=== PATIENT | female | born 1930 | race Caucasian/White ===

== ENCOUNTER 2020-07-25 06:47 | Emergency (ER) | payer MEDICARE, OTHER ==
[2020-07-25 08:30] LABS: BASOPHIL 0.3 % (0-2); EOSINOPHIL 1.2 % (0-7); HCT 41.7 % (37.0-47.0); HGB 13.8 g/dl (12.5-16.0); LYMPHOCYTE 9.8 % (15-48); MCH 30.1 pg (25.0-31.0); MCHC 33.1 g/dL (32.0-36.0); MONOCYTE 7.7 % (0-12); MPV 11.2 fL (6.0-9.5); NEUTROPHIL 80.7 % (41-80); NRBC 0; PLT 192 K/uL (150-400); RBC 4.58 M/uL (4.20-5.40); RDW 13.1 % (11.5-14.0); WBC 9.9 K/uL (4.0-10.5)
[2020-07-25 08:38] LABS: ALBUMIN 3.8 g/dL (3.4-5.0); BILIRUBIN - TOTAL 0.5 mg/dL (0.2-1.0); BUN/CREAT RATIO (CALC) 25.7 RATIO; CREATININE 1.05 mg/dL (0.51-0.95); TOTAL PROTEIN 6.8 g/dL (6.4-8.2)
[2020-07-25 09:01] LABS: BILIRUBIN NEGATIVE (NEGATIVE); BLOOD TRACE-INTACT Ery/uL (NEGATIVE); CLARITY CLEAR (CLEAR); COLOR YELLOW (YELLOW); GLUCOSE (U) NORMAL (NORMAL); LEUKOCYTES NEGATIVE Leu/uL (NEGATIVE); NITRITE NEGATIVE (NEGATIVE); PROTEIN NEGATIVE (NEGATIVE); UROBILINOGEN 0.2 mg/dL (0.2-1.0)
[2020-07-25 09:13] LABS: URINARY WBC RARE
[2020-07-25 14:39] LABS: CORONAVIRUS 2019 SARS-COV-2 NEGATIVE (NEGATIVE); INFLUENZA A NAA NEGATIVE (NEGATIVE)
== END 2020-07-25 14:16 | disposition other institution (70) ==
LOC: FER 06:47
PROVIDERS: Emergency Medicine
DX: N13.2 Hydronephrosis with renal and ureteral calculous obstruction (principal); I10 Essential (primary) hypertension; E07.9 Disorder of thyroid, unspecified; Z90.49 Acquired absence of other specified parts of digestive tract; Z88.5 Allergy status to narcotic agent; Z88.8 Allergy status to other drugs, medicaments and biological substances; Z91.040 Latex allergy status; Z79.899 Other long term (current) drug therapy; Z20.822 Contact with and (suspected) exposure to COVID-19
CPT/HCPCS: 36415; 80053; 81001; 83690; 85025; J0696; J1885; J7050; U0002